=== PATIENT | female | born 1960 | race African-American/Black ===

== ENCOUNTER 2016-11-13 18:04 | Emergency (ER) | payer OTHER ==
[2016-11-13] MEDS ORDERED: FLEXERIL PO ONE (19:42)
[2016-11-13] MEDS ORDERED: NORCO-10 PO ONE (19:42)
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
[2016-11-13 20:39] VITALS: BP 140/71
== END 2016-11-13 21:46 | disposition home or self-care (01) ==
LOC: ED 18:04
DX: R51 Headache (principal); M54.5 Low back pain; I10 Essential (primary) hypertension; E78.5 Hyperlipidemia, unspecified; K21.9 Gastro-esophageal reflux disease without esophagitis; Z79.899 Other long term (current) drug therapy; V49.40XA Driver injured in collision with unspecified motor vehicles in traffic accident, initial encounter; M19.90 Unspecified osteoarthritis, unspecified site; M79.7 Fibromyalgia; Z96.60 Presence of unspecified orthopedic joint implant; Z95.1 Presence of aortocoronary bypass graft
CPT/HCPCS: 99282

== ENCOUNTER 2017-01-09 11:30 | Emergency (ER) ==
[2017-01-09 11:41] VITALS: BP 172/86
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
--- NOTE | 2017-01-09 13:42 | Diag Imaging Result Document ---
PROCEDURE NAME: LOWER LEG-LEFT - 01/09/2017 LEFT LOWER LEG, 4 VIEWS: FINDINGS: There is plantar and dorsal spurring of the calcaneus. There is a total knee prosthesis. There is no evidence of prosthetic loosening. No evidence of acute fracture or dislocation is present. IMPRESSION: No evidence of acute disease.
[2017-01-09] MEDS ORDERED: DECADRON IM ONE (14:14)
--- NOTE | 2017-01-09 15:29 | Diag Imaging Result Document ---
PROCEDURE NAME: FEMUR MIN 2 VIEWS LEFT - 01/09/2017 LEFT FEMUR, TWO VIEWS: INDICATION: Pain. FINDINGS: The joint space about the hip is well maintained. No fracture or destructive lesion is appreciated. There is a total knee arthroplasty. IMPRESSION: No adverse features to the left femur.
== END 2017-01-09 15:20 | disposition home or self-care (01) ==
LOC: P.ED 11:30
DX: M54.42 Lumbago with sciatica, left side (principal); M79.652 Pain in left thigh; R53.1 Weakness; M25.552 Pain in left hip; I10 Essential (primary) hypertension; E78.5 Hyperlipidemia, unspecified; M79.7 Fibromyalgia; R00.0 Tachycardia, unspecified; Z79.899 Other long term (current) drug therapy; M19.90 Unspecified osteoarthritis, unspecified site; Z98.84 Bariatric surgery status
CPT/HCPCS: 96372; J1100